=== PATIENT | female | born 1975 | race Caucasian/White ===

== ENCOUNTER 2017-08-09 06:25 | Day surgery (SDC) | payer BC, OTHER ==
[2017-08-05 16:42] VITALS: BMI 27.3
[2017-08-09] MEDS ORDERED: PROPOFOL 20 ML ONE ×6 (06:28→07:37)
[2017-08-09 06:44] VITALS: TEMP 98.5
[2017-08-09 09:12] VITALS: BP 112/60; PULSE 82
--- NOTE | 2017-08-12 15:11 | PATH ---
Surgical Pathology Report Patient Name: PACO MULTANI [facility]. Rec. #: [id number] /Age/Gender: 1975 (Age: 41) / F Account: [id number] Location: [facility]-ENDOSCOPY Taken: 08/09/2017 Received: 08/09/2017 Reported: 08/12/2017 Physicians: Michelle Rodriguez M.D. Specimen(s) Received A: BX DUODENUM B: BX ANTRUM C: ANTRAL POLYP D: POLYPS BODY E: BX DISTAL ESOPHAGUS F: BX DESCENDING COLON G: POLYP SIGMOID H: BX SIGMOID I: BX RECTO SIGMOID POLYP Clinical History GERD, abdominal pain, diarrhea Rule out celiac disease, chronic GERD, rule out H. Pylori, gastric polyps (antrum and body), rule out microscopic colitis, colonic polyps Final Diagnosis A. DUODENUM, BIOPSY: DUODENAL MUCOSA WITH NO PATHOLOGIC FINDINGS. Note: Features suggestive of celiac disease are not identified in this biopsy. B. ANTRUM, BIOPSY: MILD CHRONIC GASTRITIS. IMMUNOSTAIN IS NEGATIVE FOR H. PYLORI ORGANISMS. C. ANTRAL POLYP, POLYPECTOMY: GASTRIC FUNDIC GLAND POLYP. IMMUNOSTAIN IS NEGATIVE FOR H. PYLORI ORGANISMS. D. BODY, POLYPS, POLYPECTOMY: GASTRIC FUNDIC GLAND POLYPS. IMMUNOSTAIN IS NEGATIVE FOR H PYLORI ORGANISMS. E. DISTAL ESOPHAGUS, BIOPSY: ESOPHAGEAL (SQUAMOUS) MUCOSA WITH NO SIGNIFICANT PATHOLOGIC FINDINGS. NO COLUMNAR EPITHELIUM/INTESTINAL METAPLASIA IS IDENTIFIED. F. DESCENDING COLON, BIOPSY: COLONIC MUCOSA SHOWING BENIGN/REACTIVE LYMPHOID AGGREGATE. Note: Features suggestive of microscopic colitis are not identified in this biopsy. G. SIGMOID, POLYP, POLYPECTOMY: HYPERPLASTIC POLYP. H. SIGMOID, BIOPSY: COLONIC MUCOSA SHOWING MILD SURFACE HYPERPLASTIC CHANGE. Note: Features suggestive of microscopic colitis are not identified in this biopsy. I. RECTOSIGMOID, POLYP, POLYPECTOMY: HYPERPLASTIC POLYP. Electronically Signed Mine Islas M.D. Gross Description A. Received in formalin, labeled "duodenum" are 7 calle, irregular portions of soft tissue ranging from 0.2-0.4 cm. in greatest dimension. The specimens are submitted in toto in one cassette. B. Received in formalin, labeled "antrum" are 2 calle, irregular portions of soft tissue averaging 0.4 cm. in greatest dimension. The specimens are submitted in toto in one cassette. C. Received in formalin, labeled "antral polyps" are 3 calle, irregular portions of soft tissue ranging from 0.1-0.3 cm. in greatest dimension. The specimens are submitted in toto in one cassette. D. Received in formalin, labeled "polyps in body" are 7 calle, polypoid portions of soft tissue ranging from 0.4-0.8 cm. in greatest dimension. The specimens are submitted in toto in one cassette. E. Received in formalin, labeled "distal esophagus" are 2 calle, irregular portions of soft tissue measuring 0.2 and 0.4 cm. in greatest dimension. The specimens are submitted in toto in one cassette. F. Received in formalin, labeled "descending" are 2 calle, irregular portions of soft tissue averaging 0.3 cm. in greatest dimension. The specimens are submitted in toto in one cassette. G. Received in formalin, labeled "polyp sigmoid" is a calle, irregular portion of soft tissue measuring 0.2 cm. in greatest dimension. The specimen is submitted in toto in one cassette. H. Received in formalin, labeled "sigmoid" are 2 calle, irregular portions of soft tissue measuring 0.3 and 0.4 cm. in greatest dimension. The specimens are submitted in toto in one cassette. I. Received in formalin, labeled "rectosigmoid polyp" is a calle, irregular portion of soft tissue measuring 0.2 cm. in greatest dimension. The specimen is submitted in toto in one cassette. 08/09/201708/09/2017
== END 2017-08-09 09:00 | disposition home or self-care (01) ==
LOC: FASU-ENDO 06:25
PROVIDERS: ATTEND Internal Medicine
PROC: 0DB98ZX Excision of Duodenum, Via Natural or Artificial Opening Endoscopic, Diagnostic (ICD-10-PCS; 2017-08-09)
PROC: 0DB68ZX Excision of Stomach, Via Natural or Artificial Opening Endoscopic, Diagnostic (ICD-10-PCS; 2017-08-09)
PROC: 0DBM8ZX Excision of Descending Colon, Via Natural or Artificial Opening Endoscopic, Diagnostic (ICD-10-PCS; principal; 2017-08-09 07:21)
PROC: 0DBN8ZX Excision of Sigmoid Colon, Via Natural or Artificial Opening Endoscopic, Diagnostic (ICD-10-PCS; 2017-08-09 07:21)
DX: K63.5 Polyp of colon (principal); K29.50 Unspecified chronic gastritis without bleeding; K21.9 Gastro-esophageal reflux disease without esophagitis; R12 Heartburn; K31.7 Polyp of stomach and duodenum; K44.9 Diaphragmatic hernia without obstruction or gangrene; R19.7 Diarrhea, unspecified
CPT/HCPCS: 84703; 88305-TC; 88342-TC

== ENCOUNTER 2018-03-17 11:40 | Day surgery (SDC) | payer BC, OTHER ==
[2018-03-17 11:58] LABS: PH,URINE 5.5 (4.5-8); URINE BILIRUBIN Negative (NEGATIVE); URINE GLUCOSE (UA) Negative (NEGATIVE); URINE KETONE Trace (NEGATIVE); URINE LEUK ESTERASE Negative (NEGATIVE); URINE NITRITE Negative (NEGATIVE); URINE UROBILINOGEN 0.2 (0.2-1.0)
[2018-03-17 12:00] VITALS: BMI 29.0
[2018-03-17 12:01] LABS: URINE PROTEIN 2+ (NEGATIVE)
[2018-03-17 12:02] LABS: URINE APPEARANCE HAZY; URINE COLOR YELLOW
[2018-03-17 12:06] LABS: HCG,QUALITATIVE URINE Negative
[2018-03-17] MEDS ORDERED: ONDANSETRON 4 MG/2 ML VIAL IVPUSH ONE (12:06)
[2018-03-17] MEDS ORDERED: SODIUM CHLORIDE 0.9% 1000 ML INFUS.BAG IV ONE (12:06)
[2018-03-17] MEDS ORDERED: KETOROLAC TROMETHAMINE 30 MG/1 ML VIAL IVPUSH ONE (12:06)
--- NOTE | 2018-03-17 12:11 | PDOC ---
History of Present Illness - General Chief Complaint: Back Pain Stated Complaint: RIGHT LOW BACK PAIN Time Seen by Provider: 03/17/18 11:50 - History of Present Illness Initial Comments: 03/17/18 12:06 42yo female with acute onset of R flank pain. 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 Pt states assoc with nausea this AM. [place] mild pain in her lower groin last night while urinating. Pt denies dysuria today. No hematuria. Pt denies f/c. No change in bowel habit. Pt with R flank pain. No cp/sob. No leg swelling. Pt denies abd pain. No other complaints. PMhx: sarcoid, hypothyroid, ibs, gallstones, kidney stones Meds: pred QOD, synthroid Allergies: bactrim, levaquin, clarithromycin, cefdinir Past History - Past Medical History Allergies/Adverse Reactions: Allergies Allergy/AdvReac Type Severity Reaction Status Date / Time trimethoprim [From Bactrim] Allergy Severe Hives Verified 03/17/18 11:47 cefdinir [From Omnicef] Allergy Verified 03/17/18 11:47 clarithromycin [From Biaxin] Allergy Verified 03/17/18 11:47 levofloxacin [From Levaquin] Allergy Verified 03/17/18 11:47 sulfamethoxazole Allergy Verified 03/17/18 11:47 [From Bactrim] Home Medications: Ambulatory Orders Drospir/Eth Estra/Levomefol Ca [Beyaz 28 Tablet] 1 each PO DAILY 06/08/16 Levothyroxine [Synthroid -] 125 mcg PO DAILY 08/05/17 Multivitamin [One Daily] 1 each PO DAILY 08/05/17 Prednisone 1 mg PO ASDIR 08/05/17 Tiotropium [place] [Spiriva] 2 inh PO DAILY 08/05/17 Fluticasone/Vilanterol [Breo Ellipta 100-25 Mcg INH] 1 each IH DAILY 03/17/18 Anemia: No Asthma: No Cancer: No Cardiac Disorders: No CVA: No COPD: No CHF: No Dementia: No Diabetes: No GI Disorders: No Disorders: No HTN: No Hypercholesterolemia: No Liver Disease: No Seizures: No Thyroid Disease: Yes - Surgical History Abdominal Surgery: No Appendectomy: No Cardiac Surgery: No Cholecystectomy: No Lung Surgery: Yes (Lung bx) Neurologic Surgery: No Orthopedic Surgery: No - Immunization History Td Vaccination: Yes Immunization Up to Date: Yes - Suicide/Smoking/Psychosocial Hx Smoking Status: No Smoking History: Never smoked Have you smoked in the past 12 months: No Number of Cigarettes Smoked Daily: 0 Cigars Per Day: 0 Information on smoking cessation initiated: No Hx Alcohol Use: No Drug/Substance Use Hx: No Substance Use Type: None Hx Substance Use Treatment: No Review of Systems - Review of Systems Able to Perform ROS?: Yes Is the patient limited Vietnamese proficient: No Constitutional: No: Chills, Fever HEENTM: No: Nose Congestion, Throat Pain Respiratory: No: Shortness of Breath Cardiac (ROS): No: Chest Pain, Edema, Palpitations ABD/GI: Yes: Nausea. No: Diarrhea, Vomiting, Abdominal cramping : Yes: Flank Pain. No: Burning, Dysuria, Hematuria Musculoskeletal: No: Back Pain Integumentary: No: Rash Neurological: No: Headache, Numbness All Other Systems: Reviewed and Negative *Physical Exam - Vital Signs Last Vital Signs Temp Pulse Resp BP Pulse Ox 98.2 F 92 H 20 152/94 99 03/17/18 11:42 03/17/18 11:42 03/17/18 11:42 03/17/18 11:42 03/17/18 11:42 - Physical Exam General Appearance: Yes: Nourished, Appropriately Dressed, Other (uncomfortable) HEENT: positive: EOMI, Normal ENT Inspection, Pharynx Normal Neck: positive: Supple Respiratory/Chest: positive: Lungs Clear, Normal Breath Sounds. negative: Respiratory Distress Cardiovascular: positive: Regular Rhythm, Regular Rate, S1, S2. negative: Edema Gastrointestinal/Abdominal: positive: Normal Bowel Sounds, Flat, Soft. negative : Tender, Rebound, Tenderness Musculoskeletal: positive: Normal Inspection, CVA Tenderness (R). negative: CVA Tenderness (L) Extremity: positive: Normal Capillary Refill, Normal Inspection, Normal Range of Motion Integumentary: positive: Normal Color, Dry, Warm Neurologic: positive: physician general practice II-XII NML intact, Fully Oriented, Alert, Normal Mood/ Affect, Motor Strength 5/5 Heart Score/ECG Review - ECG Intrepretation Comment:: 03/17/18 14:53 sinus at 85, nl axis, nl interval, no acute st/t wave findings ED Treatment Course - LABORATORY CBC & Chemistry Diagram: 03/17/18 12:45 03/17/18 12:45 - ADDITIONAL ORDERS Additional order review: Laboratory Results 03/17/18 11:50 Urine Color Yellow Urine Appearance Hazy Urine pH 5.5 Ur Specific [place] >= 1.030 H Urine Protein 2+ H Urine Glucose (UA) Negative Urine Ketones Trace Urine Blood 3+ H Urine Nitrite Negative Urine Bilirubin Negative Urine Urobilinogen 0.2 Ur Leukocyte Esterase Negative - RADIOLOGY Radiology Studies Ordered: Category Date Time Status ABDOMEN & PELVIS CT W/O CONTR [CT] Stat CT Scan 03/17/18 12:04 Ordered Medical Decision Making - Medical Decision Making 03/17/18 12:12 a/p: 42yo female with R flank pain -suspect renal colic vs biliary colic -will check labs, UA, UCG, -will give ivf hydration, zofran, pain control -if +blood in UA will obtain ct abd/pelvis to eval for renal colic. 03/17/18 13:41 pt states feeling better labs reviewed 03/17/18 13:41 cbc reviwed normal renal function normal liver function pt without nausea moderate bacteria in UA - will start macrobid pending CT read 03/17/18 14:17 pt with obstructing proximal R kidney stone hydro on ct call placed to [facility] product operations associate - Dr. Keller pt updated on lab and imaging results 03/17/18 14:[address] Keller - requests transfer to [facility] for OR today NPO since 1030a sending preop labs case discussed with DR. Herrera who accepts pt to service *DC/Admit/Observation/Transfer Diagnosis at time of Disposition: Hydronephrosis, Kidney stone on right side - Discharge Dispostion Condition at time of disposition: Fair Decision to Admit order: Yes - Referrals Referrals: Felicita Anderson MD [Primary Care Provider] - - Patient Instructions - Post Discharge Activity - Attestations Physician Attestion: 03/17/18 14:51 I, Dr. Nikki Hardy, DO, attest that this document has been prepared under my direction and personally reviewed by me in its entirety. I further attest, that it accurately reflects all work, treatment, procedures and medical decision -making performed by me.
[2018-03-17] MEDS ORDERED: KETOROLAC TROMETHAMINE 30 MG/1 ML VIAL ONE (12:15)
[2018-03-17] MEDS ORDERED: ONDANSETRON 4 MG/2 ML VIAL ONE (12:15)
[2018-03-17 12:16] LABS: EPI CELLS MODERATE /HPF; URINE BACTERIA MANY /hpf (NEGATIVE); URINE WBC 0-3 (0-5)
[2018-03-17 13:12] LABS: BASO % 0.7 % (0-2.0); EOS % 1.4 % (0-4.5); HEMATOCRIT 36.8 % (32.4-45.2); HEMOGLOBIN 12.4 GM/dl (10.7-15.3); LYMPH % 22.6 % (8-40); MCHC 33.7 g/dl (32.0-36.0); MEAN CELL VOLUME 85.9 fl (80-96); MEAN PLT VOLUME 7.6 fl (7.5-11.1); MONO % 6.3 % (3.8-10.2); PLATELET COUNT 284 K/MM3 (134-434); RBC 4.28 M/mm3 (3.60-5.2); WHITE BLOOD COUNT 6.4 K/mm3 (4.0-10.8)
[2018-03-17 13:17] LABS: ALBUMIN 3.9 g/dl (3.5-5.0); ALK PHOS 56 U/L (32-92); ANION GAP 11 (8-16); BILIRUBIN,TOTAL < 0.5 mg/dl (0.2-1.0); BLOOD UREA NITROGEN 11 mg/dl (7-18); CALCIUM 9.8 mg/dl (8.4-10.2); CHLORIDE 103 mmol/L (98-107); CO2 21 mmol/L (22-28); CREATININE < 0.8 mg/dl (0.6-1.3); GLUCOSE,RANDOM 105 mg/dl (74-106); POTASSIUM 3.9 mmol/L (3.5-5.1); SGOT/AST 25 U/L (10-42); SGPT/ALT 24 U/L (10-40); SODIUM 135 mmol/L (136-145); TOT PROT 7.1 g/dl (6.4-8.3)
[2018-03-17] MEDS ORDERED: NITROFURANTOIN MACROCRYSTAL 50 MG CAPSULE (FP) ONE (13:42)
[2018-03-17] MEDS ORDERED: NITROFURANTOIN MACROCRYSTAL 50 MG CAPSULE (FP) PO SCH (13:45)
[2018-03-17] MEDS ORDERED: ACETAMINOPHEN 1000 MG/100 ML VIAL (NON FORMULARY) IVPB ONE (14:53)
[2018-03-17] MEDS ORDERED: ACETAMINOPHEN INJECTION 100 ML IVPB ONE (15:28)
[2018-03-17 15:36] LABS: INR 1.11 (0.82-1.09); PROTHROMBIN TIME (PATIENT) 12.4 SEC (10.2-13.0)
--- NOTE | 2018-03-17 17:33 | CON.GU ---
Consult Consult Specialty:: Referred by:: Hayley Reason for Consultation:: R ureteral calculus - History of Present Illness Chief Complaint: R flank pain History of Present Illness: 42yo female with acute onset of R flank pain. 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 Pt states assoc with nausea this AM. [place] mild pain in her lower groin last night while urinating. Pt denies dysuria today. No hematuria. Pt denies f/c. No change in bowel habit. Pt with R flank pain. No cp/sob. No leg swelling. Pt denies abd pain. No other complaints. She was found to have a 6 mm obstructing R proximal ureteral calculus w mod hydro and cons req. PMhx: sarcoid, hypothyroid, ibs, gallstones, kidney stones Meds: pred QOD, synthroid Allergies: bactrim, levaquin, clarithromycin, cefdinir - History Source Limitations to Obtaining History: No Limitations - Past Medical History Pulmonary: Yes: Other (sarcoidosis) ...LMP: 07/22/17 - Alcohol/Substance Use Hx Alcohol Use: No - Smoking History Smoking history: Never smoked Have you smoked in the past 12 months: No Aproximately how many cigarettes per day: 0 Home Medications - Allergies Allergies/Adverse Reactions: Allergies Allergy/AdvReac Type Severity Reaction Status Date / Time trimethoprim [From Bactrim] Allergy Severe Hives Verified 03/17/18 11:47 cefdinir [From Omnicef] Allergy Verified 03/17/18 11:47 clarithromycin [From Biaxin] Allergy Verified 03/17/18 11:47 levofloxacin [From Levaquin] Allergy Verified 03/17/18 11:47 sulfamethoxazole Allergy Verified 03/17/18 11:47 [From Bactrim] - Home Medications Home Medications: Ambulatory Orders Drospir/Eth Estra/Levomefol Ca [Beyaz 28 Tablet] 1 each PO DAILY 06/08/16 Levothyroxine [Synthroid -] 125 mcg PO DAILY 08/05/17 Multivitamin [One Daily] 1 each PO DAILY 08/05/17 Prednisone 1 mg PO ASDIR 08/05/17 Tiotropium [place] [Spiriva] 2 inh PO DAILY 08/05/17 Fluticasone/Vilanterol [Breo Ellipta 100-25 Mcg INH] 1 each IH DAILY 03/17/18 Review of Systems - Review of Systems Genitourinary: reports: Flank Pain Physical Exam- Vital Signs: Vital Signs Temperature 99.0 F 03/17/18 14:59 Pulse Rate 86 03/17/18 14:59 Respiratory Rate 15 03/17/18 14:59 Blood Pressure 119/68 03/17/18 14:59 O2 Sat by Pulse Oximetry (%) 99 03/17/18 14:00 Gastrointestinal: Yes: WNL, Normal Bowel Sounds, Soft Renal/: Yes: CVA Tenderness - Right Labs: CBC, BMP 03/17/18 12:45 03/17/18 12:45 Imaging - Results Cat Scan: Report Reviewed, Image Reviewed Problem List - Problems (1) Ureteral calculus Assessment/Plan: cysto and R JJ stent insertion. F/U after disch to book ESWL vs RULL JJ Code(s): N20.1 - CALCULUS OF URETER (2) Hydronephrosis Code(s): N13.30 - UNSPECIFIED HYDRONEPHROSIS
--- NOTE | 2018-03-17 17:35 | OP ---
Operative Note - Note: Operative Date: 03/17/18 Pre-Operative Diagnosis: R ureteral calculus, R hydronephrosis Operation: cystoscopy and R JJ stent insertion Findings: 6 mm proximal ureteral calculus, mod R hydro Surgeon: Hilario Keller Anesthesiologist/LINE TECHNICIAN: Meg Tirado Anesthesia: General Estimated Blood Loss (mls): 0 Drains & Tubes with Location: 6 fr 24 cm R JJ stent Operative Report Dictated: Yes
[2018-03-17] MEDS ORDERED: ceFAZolin SODIUM 1 GM VIAL IVPB ONE (17:38)
[2018-03-17] MEDS ORDERED: MIDAZOLAM HCL 2 MG/2 ML SINGLE DOSE VIAL ONE (17:41)
[2018-03-17] MEDS ORDERED: PROPOFOL 20 ML ONE (17:57)
[2018-03-17] MEDS ORDERED: GENTAMICIN SO4 80 MG/2 ML VIAL ONE (18:01)
[2018-03-17] MEDS ORDERED: LIDOCAINE HCL 2% JELLY 10 ML CARTRIDGE ONE (18:06)
[2018-03-17] MEDS ORDERED: ONDANSETRON 4 MG/2 ML VIAL IVPUSH PRN (18:25)
[2018-03-17] MEDS ORDERED: oxyCODONE HCL 5 MG TABLET PO PRN (18:25)
[2018-03-17 18:28] LABS: URINE RBC >100 /hpf (0-3)
[2018-03-17] MEDS ORDERED: LACTATED RINGERS SOLUTION 1,000 ML IV SCH (18:30)
[2018-03-17 19:35] VITALS: BP 122/69; PULSE 70; TEMP 98.5
--- NOTE | 2018-03-18 14:47 | EKG ---
Test Reason : Blood Pressure : / mmHG Vent. Rate : 085 BPM Atrial Rate : 085 BPM P-R Int : 148 ms QRS Dur : 084 ms QT Int : 402 ms P-R-T Axes : 041 028 028 degrees QTc Int : 478 ms NORMAL SINUS RHYTHM NORMAL ECG NO PREVIOUS ECGS AVAILABLE Confirmed by MD Santos, Markus ([id number]) on 03/18/2018 2:46:59 PM Referred By: ALEN Confirmed By:Markus Graham MD
== END 2018-03-17 19:55 | disposition home or self-care (01) ==
LOC: FER 11:40 → JASU-SURG 16:55
PROVIDERS: ATTEND Urology
PROC: 0T768DZ Dilation of Right Ureter with Intraluminal Device, Via Natural or Artificial Opening Endoscopic (ICD-10-PCS; principal; 2018-03-17 17:34)
DX: N20.1 Calculus of ureter (principal); N13.39 Other hydronephrosis
CPT/HCPCS: 36415; 71045-TC-FY; 74176-TC; 76000-TC-FY; 80053; 81003; 81015; 84703; 85025; 85610; 85730; 86850; 86900; 86901; 93005; 94760; 99283-25; J0131; J7030